=== PATIENT | female | born 1965 | race Caucasian/White ===

== ENCOUNTER 2022-02-07 11:14 | Emergency (ER) | payer BC ==
[~2022-02-07] VITALS: Ht 160 cm; Wt 63.5 kg
[2022-02-07 11:15] VITALS: BP_SYST 118
--- NOTE | 2022-02-07 11:30 | NUR ---
Pt brought by self,A&Ox4, pt presents to ER with L breast pain, L chest wall pain, skin pink and warm, cap refill <3, VSS, will cont to monitor.
[2022-02-07 14:42] LABS: BASOPHILS % (AUTO) 0.7 % (0.0-2.0); EOSINOPHILS # (AUTO) 0.6 K/uL (0.0-0.4); EOSINOPHILS % (AUTO) 9.6 % (0.0-4.0); HEMATOCRIT 43.1 % (36-48); LYMPHOCYTES # (AUTO) 1.8 K/uL (1.0-5.5); LYMPHOCYTES % (AUTO) 29.1 % (20.5-51.5); MEAN CORPUSCULAR VOLUME 91 fL (79.0-98.0); MONOCYTES # (AUTO) 0.5 K/uL (0.0-1.0); MONOCYTES % (AUTO) 7.6 % (1.7-9.3); NEUTROPHILS # (AUTO) 3.2 K/uL (1.8-7.7); PLATELET COUNT (AUTO) 253 K/uL (130-430); RED BLOOD CELL COUNT(AUTO) 4.72 MIL/uL (4.2-6.2); RED CELL DISTRIBUTION WIDTH 13.5 % (9.0-15.0); WHITE BLOOD COUNT (AUTO) 6.1 K/uL (4.8-10.8)
[2022-02-07 15:44] VITALS: BP_SYST 121
--- NOTE | 2022-02-07 16:00 | NUR ---
RECEIVED PT FROM ADAM CONTE. PT TAKEN TO ROOM 5 AND PLACED ON MONITOR. PT HAS C/O LEFT BREAST C/P AND TENDERNESS 5/10 WHEN PRESSURE IS APPLIED. PT IS AAOX4. RESP E/U. ON R/A. NORMAL S1S2 NOTED. DENIES N/V/D/C. SKIN WARM, INTACT, NO EDEMA. SIDERRAILS UP X2.
--- NOTE | 2022-02-07 17:07 | NUR ---
PT TAKEN FOR U/S L BREAST AT THIS TIME.
--- NOTE | 2022-02-07 18:45 | NUR ---
PT UPDATED ON POC. DR. RANDOLPH IS WAITING FOR LAB RESULTS FOR TROP LEVEL. PT VERBALIZED UNDERSTANDING.
--- NOTE | 2022-02-07 19:17 | NUR ---
ENDORSED ALL CARE TO ADAM SORIANO. ALL QUESTIONS AND CONCERNS ADDRESSED.
--- NOTE | 2022-02-07 19:28 | NUR ---
Patient does not wish to proceed with medical care recommended by DR RANDOLPH. Patient given information related to possible complications, up to and including , which could occur as a result of leaving hospital at this time. Patient verbalizes understanding of risks involved leaving against medical advice. Patient has signed AMA form.
[2022-02-07 20:33] LABS: ANION GAP 8 (5-15); CALCIUM 8.8 mg/dL (8.4-11.0); CHLORIDE 104 mmol/L (98-107); CREATININE 0.85 mg/dL (0.55-1.30); GLUCOSE 74 mg/dL (70-99); POTASSIUM 4.1 mmol/L (3.5-5.1); UREA NITROGEN, BLOOD 14 mg/dL (8-21)
[2022-02-07 20:38] LABS: ALBUMIN 3.8 g/dL (3.4-4.8); ASPARTATE AMINOTRANSFERASE 25 U/L (10-37); TOTAL BILIRUBIN 0.3 mg/dL (0.0-1.0)
[2022-02-07 21:22] LABS: GFR AFRICAN AMERICAN 89 mL/min (>90)
[2022-02-07 22:46] LABS: ALANINE AMINOTRANSFERASE 28 U/L (12-78)
== END 2022-02-07 19:51 | disposition left against medical advice (07) ==
LOC: SED 11:14
DX: R07.9 Chest pain, unspecified (principal); Z79.899 Other long term (current) drug therapy
CPT/HCPCS: 36415; 71045; 76642; 80053; 83880; 84484; 85025; 85379; 93005; 99285

== ENCOUNTER 2023-03-12 15:25 | Emergency (ER) | payer BC ==
[~2023-03-12] VITALS: Ht 160 cm; Wt 59.0 kg
[2023-03-12 15:31] VITALS: BP_SYST 103; PULSE 77; RESP 20; TEMP 98.3; O2SAT 96
[2023-03-12] MEDS ORDERED: KETOROLAC TROMETHAMINE 30 MG VIAL IM ONE (16:00)
[2023-03-12 16:21] LABS: BASOPHILS % (AUTO) 0.8 % (0.0-2.0); EOSINOPHILS # (AUTO) 0.5 K/uL (0.0-0.4); EOSINOPHILS % (AUTO) 8.6 % (0.0-4.0); HEMATOCRIT 41.8 % (36-48); HEMOGLOBIN 13.7 g/dL (12.0-16.0); LYMPHOCYTES # (AUTO) 1.7 K/uL (1.0-5.5); MEAN CORPUSCULAR HEMOGLOBIN 30 pg (27-31); MEAN CORPUSCULAR HGB CONC 33 % (32-36); MEAN CORPUSCULAR VOLUME 92 fL (79.0-98.0); MONOCYTES # (AUTO) 0.5 K/uL (0.0-1.0); MONOCYTES % (AUTO) 7.8 % (1.7-9.3); NEUTROPHILS # (AUTO) 3.2 K/uL (1.8-7.7); NEUTROPHILS % (AUTO) 53.8 % (40.0-70.0); PLATELET COUNT (AUTO) 222 K/uL (130-430); RED BLOOD CELL COUNT(AUTO) 4.56 MIL/uL (4.2-6.2); RED CELL DISTRIBUTION WIDTH 13.4 % (9.0-15.0); WHITE BLOOD COUNT (AUTO) 5.9 K/uL (4.8-10.8)
[2023-03-12 16:32] LABS: ANION GAP 4 (5-15); CARBON DIOXIDE 28 mmol/L (23-29); CHLORIDE 101 mmol/L (98-107); CREATININE 0.64 mg/dL (0.55-1.30); GFR AFRICAN AMERICAN 123 mL/min (>90); GFR NON AFRICAN-AMERICAN 102 mL/min (>90); GLUCOSE 111 mg/dL (74-106); POTASSIUM 3.6 mmol/L (3.5-5.1); SODIUM SERUM 133 mmol/L (136-145); UREA NITROGEN, BLOOD 12 mg/dL (8-21)
[2023-03-12 16:45] LABS: ALANINE AMINOTRANSFERASE 37 U/L (12-78); ALBUMIN 3.5 g/dL (3.4-4.8); ASPARTATE AMINOTRANSFERASE 22 U/L (10-37); FREE T4 (FREE THYROXINE) 1.1 ng/dL (0.6-1.6); THYROID STIMULATING HORMONE 1.57 uIu/mL (0.34-4.82); TOTAL BILIRUBIN 0.2 mg/dL (0.0-1.0); TOTAL PROTEIN, SERUM 7.2 g/dL (6.4-8.3)
[2023-03-12 16:49] LABS: INFLUENZA TYPE A Negative (NEGATIVE); INFLUENZA TYPE B NEGATIVE (NEGATIVE)
[2023-03-12] MEDS ORDERED: DICL20GE TP (17:12)
[2023-03-12] MEDS ORDERED: IBUP-1969 PO (17:12)
[2023-03-12 17:56] VITALS: BP_SYST 103; PULSE 77; RESP 20; TEMP 98.3; O2SAT 96
== END 2023-03-12 17:56 | disposition home or self-care (01) ==
LOC: SED 15:25
DX: S46.812A Strain of other muscles, fascia and tendons at shoulder and upper arm level, left arm, initial encounter (principal); R53.1 Weakness; M79.10 Myalgia, unspecified site; M54.2 Cervicalgia; Z79.899 Other long term (current) drug therapy; Z20.822 Contact with and (suspected) exposure to COVID-19; X58.XXXA Exposure to other specified factors, initial encounter; Y93.89 Activity, other specified; Y92.89 Other specified places as the place of occurrence of the external cause; Y99.8 Other external cause status
CPT/HCPCS: 99285; 87426; 80053; 84439; 84443; 85025; 84484; 36415; 93005; 72040; 96372; 87804 ×2; J1885